=== PATIENT | male | born 1990 | race Two or more races ===

== ENCOUNTER 2025-09-10 16:01 | Emergency (ER) | payer SELFPAY ==
[2025-09-10 16:47] VITALS: BP 150/81; PULSE 77; RESP 18; TEMP 36.8; O2SAT 99; BMI 34.0
--- NOTE | 2025-09-10 16:55 | XR_ITS ---
Examination: Abdomen sonogram, Limited Date and time of exam: September 10, 2025, 1635 hours INDICATIONS: Right upper abdominal pain and nausea today Technique: Real-time rincon scale transabdominal sonographic images of the upper abdomen obtained. Findings: 9 mm x 10 mm gallstone Gallbladder wall 0.3 cm Common bile duct 0.3 cm Pancreatic head 2.8 cm Liver 17.0 cm fatty infiltration Normal hepatopetal portal venous flow Patent IVC IMPRESSION: Cholelithiasis, negative for cholecystitis
[2025-09-10 17:46] LABS: Basophils # (Auto) 0.1 Thou/mm3 (0.0-0.2); Basophils % (Auto) 0 % (0-2.5); Eosinophils # (Auto) 0.1 Thou/mm3 (0.0-0.5); Eosinophils % (Auto) 1 % (0-10); Hematocrit 48.0 % (41.0-53.0); Hemoglobin 16.2 g/dL (13.5-16.0); Immature Granulocytes Auto 0.09 Thou/mm3 (0.00-0.00); Lymphocytes # (Auto) 1.8 Thou/mm3 (1.0-4.8); Lymphocytes % (Auto) 16 % (10-50); Mean Corpuscular HGB Conc 33.8 g/dl (31.0-37.0); Mean Corpuscular Hemoglobin 28.2 pg (25.0-35.0); Mean Corpuscular Volume 84 fL (80-100); Monocytes # (Auto) 0.8 Thou/mm3 (0.0-0.8); Monocytes % (Auto) 7 % (0-12); Neutrophils # (Auto) 8.4 Thou/mm3 (1.8-7.7); Neutrophils % (Auto) 75 % (37-80); Nucleated Red Blood Cell # 0.00 Thou/mm3 (0.00-0.00); Nucleated Red Blood Cell % 0 /100 WBC (0); Platelet Count 342 Thou/mm3 (140-440); RDW Standard Deviation 39.4 fL (35.1-43.9); Red Blood Count 5.75 Miln/mm3 (4.50-5.90); White Blood Count 11.2 Thou/mm3 (3.8-10.6)
[2025-09-10 17:48] LABS: Collection Type, Urine Clean Catch
[2025-09-10 18:04] LABS: Amorphous Crystals,Urine Present (Absent); Bacteria,Urine Rare; Bilirubin,Urine Negative (Negative); Blood,Urine Negative (Negative); Clarity,Urine Clear (Clear/Hazy); Color,Urine Colorless (Lt Yel-Yel); Glucose, Urine Negative (Negative); Ketones,Urine Negative (Negative); Leukocyte Esterase,Urine Negative (Negative); Nitrite,Urine Negative (Negative); PH,Urine 6.5 (5.0-7.0); Protein,Urine Negative (Neg - Trace); RBC,Urine 1 /hpf (0-3); Specific Gravity,Urine 1.009 (1.001-1.035); Squamous Epithelial Cell,Urine 1 /hpf (0-5); Urobilinogen,Urine Negative mg/dL (0.0-1.0); WBC,Urine 1 /hpf (0-5)
[2025-09-10 18:06] LABS: Alanine Aminotransferase 103 U/L (10-49); Albumin, Serum 5.0 gm/dL (3.5-5.0); Albumin/Globulin Ratio 2.2 (1.2-2.2); Alkaline Phosphatase 137 U/L (46-116); Anion Gap 11 (7-16); Aspartate Amino Transferase 38 U/L (0-34); BUN/Creatinine Ratio 6 Ratio (12-20); Bilirubin,Total 0.6 mg/dL (0.3-1.2); Blood Urea Nitrogen 7 mg/dL (9-23); Calcium 9.9 mg/dL (8.3-10.6); Calcium (Corrected) 9.9 mg/dL (8.5-10.1); Carbon Dioxide 27.2 mMol/L (20.0-31.0); Chloride 104 mMol/L (98-107); Creatinine (Component) 1.1 mg/dL (0.6-1.3); Estimated Creatinine Clearance 113.7 mL/min (>60); Globulin 2.3 gm/dL (2.3-3.5); Glucose 107 mg/dL (74-106); Lipase 34 U/L (12-53); Osmolality,Calculated 281 (275-295); Potassium 3.9 mMol/L (3.4-5.1); Sodium 142 mMol/L (136-145); Total Protein 7.3 gm/dL (5.7-8.2); eGFR > 60 See Note
--- NOTE | 2025-09-10 18:32 | PD.EDABDPN ---
ED Abdominal Pain RME/HPI General Chief Complaint: Abdominal Pain Stated complaint: RUQ ABD PAIN THIS AM Time seen by provider: 09/10/25 16:18 Arrival date/time: 09/10/25 16:01 This is a case of 35-year-old male with no medical history came in in the emergency room due to abdominal pain mainly on the epigastric area and right upper quadrant today associated with nausea vomiting patient denies any fever chills denies any constipation diarrhea denies any blood in stool worsening of the symptoms this patient decided to sought consult here in the emergency room Limitations: no limitations Related Data Previous Rx's ?Medication ?Instructions ?Recorded hydrocodone 5 mg-acetaminophen 325 1 tab PO Q6H PRN pain #16 tabs 09/10/25 mg tablet ondansetron 4 mg disintegrating 4 mg PO Q8H #20 tabs 09/10/25 tablet Allergies Allergy/AdvReac Type Severity Reaction Status Date / Time No Known Allergies Allergy Verified 09/10/25 16:04 Review of Systems Review of Systems Systems Reviewed: All systems reviewed, normal except as documented Constitutional Constitutional: Reports system reviewed and no additional complaints, except as documented and Reports as per HPI ENT Ears, Nose, Mouth, and Throat: Denies dysphagia and Denies odynophagia Cardiovascular Cardiovascular: Reports system reviewed and no additional complaints, except as documented and Reports as per HPI Respiratory Respiratory: Reports system reviewed and no additional complaints, except as documented and Reports as per HPI Gastrointestinal Gastrointestinal: Reports system reviewed and no additional complaints, except as documented, Reports as per HPI, Denies abdominal pain, Denies belching, Denies bloating, Denies change in bowel habits, Denies change in stool character, Denies coffee ground emesis, Denies constipation, Denies cramping, Denies diarrhea, Denies dyspepsia, Denies dysphagia, Denies early satiety, Denies excessive flatus, Denies fecal incontinence, Denies heartburn, Denies hematemesis, Denies hematochezia, Denies loose stools, Denies melena, Reports nausea, Denies odynophagia, Denies tenesmus and Reports vomiting Genitourinary Genitourinary: Reports system reviewed and no additional complaints, except as documented and Reports as per HPI Neurologic Neurologic: Reports system reviewed and no additional complaints, except as documented and Reports as per HPI Past Medical History Social History SMOKING STATUS: Never smoker ED Exam General Limitations: Present no limitations General appearance: Present alert, in no apparent distress and other (Patient is awake alert oriented not in distress nontoxic looking well-hydrated well nourished) Head Head exam: Present atraumatic, normocephalic and normal inspection Eye Eye exam: Present normal appearance, PERRL and EOMI ENT ENT exam: Present normal exam, normal oropharynx and mucous membranes moist Neck Neck exam: Present normal inspection, full ROM and trachea midline; Absent tenderness, meningismus, lymphadenopathy or thyromegaly Chest Chest inspection: Present normal inspection and symmetric chest wall rise Respiratory Respiratory exam: Present normal lung sounds bilaterally; Absent respiratory distress, wheezes, stridor, accessory muscle use or prolonged expiratory phase Cardiovascular Cardiovascular exam: Present regular rate, normal rhythm and normal heart sounds; Absent bradycardia, tachycardia, irregular rhythm, systolic murmur or diastolic murmur Abdominal Exam Abdominal exam: Present soft, tenderness (Mild tenderness epigastric area and right upper quadrant), normal bowel sounds and other (No CVA tenderness); Absent distention, guarding, rebound, rigidity, diminished bowel sounds, hyperactive bowel sounds, hypoactive bowel sounds, organomegaly, trauma, obturator sign, Rovsing's sign, tenderness at McBurney's Point or hernia Extremities Exam Extremities exam: Present normal inspection and full ROM Back Exam Back exam: Present normal inspection and full ROM Neurological Exam Neurological exam: Present alert, oriented X3, CN II-XII intact, normal gait and reflexes normal; Absent motor sensory deficit Psychiatric Psychiatric exam: Present normal affect and normal mood Skin Skin exam: Present warm, dry, intact, normal color and other (Excellent skin turgor) Course Quality Measures none Orders Category Date Time Status US gall bladder Stat Exams 09/10/25 16:55 Completed CBC Stat Lab 09/10/25 17:22 Completed Comprehensive Metabolic Panel Stat Lab 09/10/25 17:22 Completed Lipase Stat Lab 09/10/25 17:22 Completed Urinalysis Stat Lab 09/10/25 17:40 Completed HYDROcodone*/APAP 5/325 [[place] 5/325] Med 09/10/25 18:28 Once 1 tab PO X1 ONE Ondansetron Odt [Zofran Odt] Med 09/10/25 18:28 Once 4 mg PO X1 ONE Vital Signs Vital signs: Vital Signs Temperature 98.3 F 09/10/25 16:47 Pulse Rate 77 09/10/25 16:47 Respiratory Rate 18 09/10/25 16:47 Blood Pressure 150/81 H 09/10/25 16:47 Pulse Oximetry (%) 99 09/10/25 16:47 Oxygen Delivery Method Room Air 09/10/25 16:47 Oxygen saturation is 99% in room air Abdominal Pain MDM MDM Narrative MDM Narrative:: This is a case of 35-year-old male with no medical history came in in the emergency room due to abdominal pain mainly on the epigastric area and right upper quadrant today associated with nausea vomiting patient denies any fever chills denies any constipation diarrhea denies any blood in stool worsening of the symptoms this patient decided to sought consult here in the emergency room physical examination patient is awake alert oriented not in distress nontoxic looking well-hydrated well-nourished mild tenderness on the epigastric area and right upper quadrant but no guarding no rebound no rigidity negative psoas negative straight or negative Rovsing's negative McBurney's negative Harper sign negative CVA tenderness the rest of the physical examination and neurological exam is normal no signs and symptoms of sepsis dehydration or acute abdomen blood test showed mild leukocytosis at 11,000 no anemia platelet is normal kidney function is normal liver enzymes slightly elevated but not significant lipase is normal urinalysis is normal ultrasound of the gallbladder showed cholelithiasis with no cholecystitis patient was given [place] for pain Zofran for nausea vomiting patient condition markedly improved and resolved patient will follow-up with PCP in 2 days for reevaluation and to be referred to associate professor of psychology and general surgeon for further evaluation and treatment of cholelithiasis and for any worsening symptoms or any emergent concern return precaution in the ER is advised Patient was discharged with comfortable condition walking with stable gait. Patient verbalized no further complains explained diagnosis and answered patient question. Patient is comfortable with the proposed management plan including the need to follow up with his/her primary care physician and any specialist if applicable Discussed patient for any urgent condition or worsening sx, He/She needed to go to emergency room immediately or call 911. Patient acknowledge the responsibility to follow up as instructed and to monitor her/his symptoms. For any persistence of the symptoms for more than 3-5 days return precaution advised. Discussed the result of the test and was given printed discharge instruction Patient data External records reviewed:: [facility] previous records Clinical information provided by:: patient Social determinants that could affect healthcare access:: none Patient has the following chronic illnesses:: None How is presenting disease/condition affected by chronic disease/condition?: no chronic disease Evaluation data The following diagnostics were reviewed and interpreted by me:: lab results and radiology exam(s) Lab and/or radiology exams considered but not ordered:: Reviewed Interpretation Summary: Reviewed Medications / Prescriptions Medications or Prescriptions considered but not ordered:: Given Medication administrations:: Medication Administration History Hydrocodone Bitart/Acetaminophen (Hydrocodone/Apap 5/325 Tablet) 1 tab PO X1 ONE Stop: 09/10/25 18:29 Ondansetron HCl (Ondansetron Odt 4 Mg Tabrap) 4 mg PO X1 ONE; Protocol Stop: 09/10/25 18:29 Given Consultations Consultation(s) initiated? (list below): No Diagnosis Differential diagnosis abdominal pain: abdominal pain, acute appendicitis, calculus of kidney, constipation, diverticulitis, endometriosis, gastroenteritis, pancreatitis, small bowel obstruction and other (Cholelithiasis gastritis) Most likely diagnosis given after review of the tests above:: Cholelithiasis Admission Indicated Admission indicated?: not indicated Explain why admission is indicated or not indicated:: Not indicated Admission Request Was there a request for admission?: No Admission Attestation Admission request attestation: Not indicated Disposition Plan Disposition Plan: Discharge Discharge Attestation Discharge Attestation: The patient and all family members were given an opportunity to ask questions and understood the discharge instructions. Discharge instructions specifically effects, indications for sooner follow up or return to the emergency department, and the expected course of current diagnosis. Patient condition: Stable Discharge Plan Plan Patient Disposition: HOME (Self Care) Patient condition on transfer: Stable Prescriptions/Referrals Prescriptions/Med Rec: New hydrocodone-acetaminophen 5-325 mg tablet 1 tab PO Q6H MDD max 4 tabs per day PRN (Reason: pain) Qty: 16 0RF ondansetron 4 mg tablet,disintegrating 4 mg PO Q8H Qty: 20 0RF Referrals: No Primary/Family,Physician [Primary Care Provider] - In 1 week Problem List Clinical Impression: Abdominal pain, Cholelithiasis Patient/Caregiver Discharge Instructions Education Materials: Abdominal Pain, What Are Gallstones, Treating Gallstones Additional Instructions: Follow-up with your primary care physician in 2 days for reevaluation and to be referred to associate professor of psychology and general surgeon for further evaluation and treatment of your cholelithiasis worsening symptoms or any emergent concern call 911 or go to the nearest emergency room take your medication as directed keep hydrated Pedialyte Gatorade for hydration avoid skipping of meals avoid fat fried high cholesterol food avoid soda alcohol avoid alcohol avoid spicy food Print Language: Czech Stand Alone Forms: Shanna Award Info., Patient Portal Info Letter PA/WATERPROOFER HELPER Supervising Physician PA/WATERPROOFER HELPER Supervising Physician: Dr. Dejesus
[2025-09-10] MEDS: HYDROcodone/APAP 5/325 TABLET 1 TAB PO (18:52)
[2025-09-10] MEDS: ONDANSETRON ODT 4 MG TABRAP PO (18:53)
== END 2025-09-10 19:06 | disposition home or self-care (01) ==
PROVIDERS: Nurse Practitioner Family; Emergency Provider Emergency Medicine
DX: K80.20 Calculus of gallbladder without cholecystitis without obstruction (principal)
CPT/HCPCS: 36415; 76705; 80053; 81001; 83690; 85025; 99283; Q0162; A9270